=== PATIENT | male | born 1970 | race Caucasian/White ===

== ENCOUNTER 2023-03-21 15:33 | Outpatient (CLI) | payer OTHER, SELFPAY ==
--- NOTE | ~2023-03-21 | MR_ITS ---
EXAMINATION: MR shoulder RT wo con DATE: 03/21/2023 16:27 INDICATION: Injury of tendon of long head of right biceps. TECHNIQUE: Magnetic resonance imaging (MRI) of the right shoulder was performed without intravenous c ontrast. Sequences included axial PD-weighted FS FSE, coronal oblique PD-weighted FS FSE and T2-weigh johnathan FS FSE, and sagittal oblique T2-weighted FS FSE and T1-weighted FSE. COMPARISON: None. FINDINGS: Coracoacromial arch: The acromion undersurface is flat in morphology (type I). There is severe acromioclavicular joint ost eoarthritis including inferiorly directed osteophytes. There is mild subacromial/subdeltoid bursitis. Rotator cuff: There is articular sided partial-thickness tear of supraspinatus and infraspinatus tendons measuring 2.7 cm anterior to posterior by 2.4 cm proximal to distal by 80% tendon thickness. Teres minor tendon is normal. There is a tear of superior subscapularis tendon. There is no asymmetric fatty atrophy of the rotator cuff muscle bellies. Biceps tendon and glenoid labrum: There is a partial tear of biceps tendon, which is in bicipital groove. The glenoid labrum is intact. Fluid: There is a small glenohumeral joint effusion. Bones/cartilage: Humeral head cartilage is normal. Glenoid cartilage is normal. IMPRESSION: 1. Partial-thickness rotator cuff tears. 2. Partial tear of biceps tendon. 3. Severe acromioclavicular joint osteoarthritis. 4. Mild subacromial/subdeltoid bursitis. 5. Small glenohumeral joint effusion. Reviewed, dictated and finalized at location E. [facility] [employer]
== END 2023-03-21 15:34 | disposition home or self-care (01) ==
PROVIDERS: PCP Physician Assistant; Visit Provider Orthopaedic Surgery
DX: S46.101A Unspecified injury of muscle, fascia and tendon of long head of biceps, right arm, initial encounter (principal); S46.011A Strain of muscle(s) and tendon(s) of the rotator cuff of right shoulder, initial encounter; X58.XXXA Exposure to other specified factors, initial encounter; M19.011 Primary osteoarthritis, right shoulder; M25.411 Effusion, right shoulder
CPT/HCPCS: 73221